=== PATIENT | female | born 1975 | race Caucasian/White ===

== ENCOUNTER 2022-06-04 05:29 | Day surgery (SDC) | payer OTHER ==
[~2022-06-04] VITALS: Ht 160 cm; Wt 63.5 kg
[~2022-06-04 05:29] MED LIST: CIPRO500 MG PO; FEROSUL325 ( 65 ) PO; LEVSIN/SL0.125 MG PO; LOSARTAN POTAS100 MG PO; OXYC1TAB9 PO; VERAP PO
== END 2022-06-04 20:35 | disposition home or self-care (01) ==
LOC: CIR.AMB 05:29
PROVIDERS: ATTEND Surgery
DX: N60.21 Fibroadenosis of right breast (principal); N60.22 Fibroadenosis of left breast; N60.82 Other benign mammary dysplasias of left breast; N60.81 Other benign mammary dysplasias of right breast; R92.1 Mammographic calcification found on diagnostic imaging of breast; I10 Essential (primary) hypertension; Z20.822 Contact with and (suspected) exposure to COVID-19

== ENCOUNTER 2023-04-07 10:47 | Outpatient (CLI) | payer OTHER | END 2023-04-07 10:51 | disposition home or self-care (01) | LOC: SONOGRAMA 10:47 | PROVIDERS: ATTEND Pathology Anatomic Pathology & Clinical Pathology | DX: R59.0 Localized enlarged lymph nodes (principal) ==